=== PATIENT | female | born 1955 | race Caucasian/White ===

== ENCOUNTER 2017-06-01 15:34 | Inpatient (IN) | payer OTHER, MEDICARE ==
[~2017-06-01] VITALS: Ht 157.5 cm; Wt 110.1 kg
[~2017-06-01 15:34] MED LIST: CHLO25TA2 PO; CHOL4POW3 PO; CLIN300C5 PO; DICL1GEL7 TOPICAL; DULE200A INH; FLUT1SPR5 EACH NARE; FLUT1SPR9 EACH NARE; LACO50 PO; LEVO88TA2 PO; LEXA10TA PO; LOSA50TA PO; MELO15TA20 PO; METF500 PO; MONT10TA2 PO; NEUR300C PO; PRAV20TA2 PO; ROBA500T PO; TEGR400T PO; VENTAER INH; VITA250T5 PO; ZANT150T2 PO
[2017-06-01] MEDS ORDERED: LACTULOSE SYRUP 20 GM/30 ML CUP PO PRN (16:15)
[2017-06-01] MEDS ORDERED: CYANOCOBALAMIN 100 MCG TAB PO PRN (16:15)
[2017-06-01] MEDS ORDERED: GLUCAGON 1 MG/ML VIAL OTHER PRN (16:15)
[2017-06-01] MEDS ORDERED: SODIUM CHLORIDE 0.9% FLUSH 10 ML FLUSH IV FLUSH PRN (16:15)
[2017-06-01] MEDS ORDERED: NALOXONE HCL 0.4 MG/ML AMP IV PUSH PRN (16:15)
[2017-06-01] MEDS ORDERED: SENNOSIDES 8.6 MG TAB PO PRN (16:15)
[2017-06-01] MEDS ORDERED: ALBUTEROL SULFATE 90 MCG/ACT HFA 8 GM INHALER INH PRN (16:15)
[2017-06-01] MEDS ORDERED: ACETAMINOPHEN/HYDROcodone 325 MG/5 MG TAB PO PRN (16:15)
[2017-06-01] MEDS ORDERED: ONDANSETRON HCL 4 MG/2 ML VIAL IVP PRN (16:15)
[2017-06-01] MEDS ORDERED: MAGNESIUM HYDROXIDE SUSP 30 ML CUP PO PRN (16:15)
[2017-06-01] MEDS ORDERED: DEXTROSE 50% IN WATER 50 ML VIAL(D50) IV PUSH PRN (16:15)
[2017-06-01] MEDS ORDERED: Vancomycin Consult Pharmacy 1 EA OTHER SCH (16:15)
[2017-06-01] MEDS ORDERED: BISACODYL 10 MG SUPP RECTAL PRN (16:15)
[2017-06-01] MEDS ORDERED: MELOXICAM 15 MG TAB PO PRN (16:15)
[2017-06-01] MEDS ORDERED: VANCOMYCIN INJ 1,000 MG in SODIUM CHLOR 0.9% 250 ML INJ 250 ML IV SCH (16:15)
[2017-06-01] MEDS ORDERED: PILL SPLITTER OTHER PRN (19:30)
[2017-06-01 20:00] VITALS: BP 120/56; PULSE 68; RESP 20; TEMP 97.3; O2SAT 97
[2017-06-01] MEDS: DOCUSATE SODIUM 50 MG/SENNA 8.6 MG TAB PO SCH (21:00)
[2017-06-01] MEDS ORDERED: NON-FORMULARY DRUG (Mometasone-Formoterol 120 Act Inh (Dulera 120 Act Inh) 2 PUFF) INH SCH (21:00)
[2017-06-01] MEDS ORDERED: DICLOFENAC 1% TOPICAL SCH (21:00)
[2017-06-01] MEDS: INSULIN ASPART SUPPLEMENTAL SCALE SQ SCH (21:00)
[2017-06-01] MEDS ORDERED: TEGRETOL 400 MG PO SCH (21:00)
[2017-06-01] MEDS ORDERED: NON-FORMULARY DRUG (Fluticasone Nasal Spray (Flonase Nasal Spray) 50 MCG) EACH NARE SCH (21:00)
[2017-06-01] MEDS ORDERED: LACOSAMIDE 50 MG TAB PO SCH (22:00)
[2017-06-01] MEDS: SODIUM CHLOR 0.9% 1000 ML INJ 1,000 ML IV SCH (22:10)
[2017-06-01] MEDS: SODIUM CHLORIDE 0.9% FLUSH 10 ML FLUSH IV FLUSH SCH (22:11)
[2017-06-01] MEDS: FAMOTIDINE 20 MG TAB PO SCH (22:12)
[2017-06-01] MEDS: MONTELUKAST SODIUM 10 MG TAB PO SCH (22:12)
[2017-06-01] MEDS: ENOXAPARIN SODIUM 40 MG/0.4 ML SYRINGE SQ SCH (22:12)
[2017-06-01] MEDS: GABAPENTIN 300 MG CAP PO SCH (22:13)
[2017-06-01] MEDS ORDERED: VANCOMYCIN INJ 1,700 MG in SODIUM CHLORID 0.9% 500 ML INJ 500 ML IV SCH (23:00)
[2017-06-02] VITALS: BP 139/63; PULSE 71; RESP 20; TEMP 96.5; O2SAT 100
[2017-06-02] MEDS ORDERED: LACOSAMIDE 50 MG TAB PO SCH ×2 (00:15→09:00)
[2017-06-02] MEDS ORDERED: diphenhydrAMINE HCL 50 MG/ML VIAL IV PUSH ONE (00:45)
[2017-06-02] MEDS: LACOSAMIDE 100 MG TAB PO SCH ×3 (00:54→20:10)
[2017-06-02] MEDS: LEVOTHYROXINE SODIUM 88 MCG TAB PO SCH (05:29)
[2017-06-02 06:10] LABS: AUTOMATED NEUTROPHIL # 4.6 TH/MM3 (1.8-7.7); BASOPHIL % 0.5 % (0.0-2.0); EOSINOPHIL # 0.2 TH/MM3 (0-0.4); EOSINOPHIL % 2.4 % (0.0-4.0); HEMATOCRIT 31.9 % (35.0-46.0); HEMOGLOBIN 10.6 GM/DL (11.6-15.3); LYMPH % 25.2 % (9.0-44.0); LYMPHOCYTE # 1.9 TH/MM3 (1.0-4.8); MEAN CELL VOLUME 82.9 FL (80.0-100.0); MEAN CORPUSCULAR HEMOGLOBIN 27.6 PG (27.0-34.0); MEAN CORPUSCULAR HGB CONC 33.3 % (32.0-36.0); MEAN PLATELET VOLUME 6.9 FL (7.0-11.0); MONO % 9.4 % (0.0-8.0); MONOCYTE # 0.7 TH/MM3 (0-0.9); NEUT % 62.5 % (16.0-70.0); PLATELET COUNT 257 TH/MM3 (150-450); RED BLOOD COUNT 3.84 MIL/MM3 (4.00-5.30); RED CELL DISTRIBUTION WIDTH 13.3 % (11.6-17.2); WHITE BLOOD COUNT 7.4 TH/MM3 (4.0-11.0)
[2017-06-02 06:19] LABS: CHLORIDE 98 MEQ/L (98-107); SODIUM (NA) 135 MEQ/L (136-145)
[2017-06-02 06:22] LABS: CALCIUM 8.2 MG/DL (8.5-10.1)
[2017-06-02 06:23] LABS: ALBUMIN 3.1 GM/DL (3.4-5.0); BICARBONATE 29.4 MEQ/L (21.0-32.0); BLOOD UREA NITROGEN 16 MG/DL (7-18); GLUCOSE,RANDOM 111 MG/DL (74-106)
[2017-06-02 06:26] LABS: ALT (GPT) 20 U/L (10-53); AST (GOT) 16 U/L (15-37); CREATININE 0.62 MG/DL (0.50-1.00); GLOMERULAR FILTRATION RATE 98 ML/MIN (>89)
[2017-06-02 06:27] LABS: TOTAL BILIRUBIN ADULT 0.3 MG/DL (0.2-1.0); TOTAL PROTEIN 6.6 GM/DL (6.4-8.2)
[2017-06-02 06:29] LABS: ALKALINE PHOSPHATASE 64 U/L (45-117)
[2017-06-02 08:00] VITALS: BP 134/60; PULSE 73; RESP 18; TEMP 98; O2SAT 100
[2017-06-02] MEDS: INSULIN ASPART SUPPLEMENTAL SCALE SQ SCH ×4 (08:00→20:25)
[2017-06-02] MEDS ORDERED: POTASSIUM CHLORIDE 20 MEQ CONTROLLED RELEASE TAB PO ONE (08:45)
[2017-06-02] MEDS: DOCUSATE SODIUM 50 MG/SENNA 8.6 MG TAB PO SCH ×2 (09:00→20:11)
[2017-06-02] MEDS: ESCITALOPRAM OXALATE 10 MG TAB PO SCH (09:00)
[2017-06-02] MEDS ORDERED: POTASSIUM CHLORIDE 10 MEQ CONTROLLED RELEASE TAB PO ONE (09:15)
--- NOTE | 2017-06-02 10:16 | HHI.DCPOC ---
Discharge Care Plan Goals to Promote Your Health * To prevent worsening of your condition and complications * To maintain your health at the optimal level Directions to Meet Your Goals Take your medications as prescribed Follow your dietary instruction Follow activity as directed Keep your appointments as scheduled Take your immunizations and boosters as scheduled If your symptoms worsen call your PCP, if no PCP go to Urgent Care Center or Emergency Room Smoking is Dangerous to Your Health. Avoid second hand smoke Call the 24-hour hour crisis hotline for domestic abuse at Evi Siddiqui MD Jun 02, 2017 10:16
[2017-06-02] MEDS: CHOLESTYRAMINE 4 GM PACKET PO SCH ×2 (11:00→17:00)
[2017-06-02] MEDS: FLUTICASONE PROPIONATE 50 MCG/ACT 16 GM NASAL SPRAY EACH NARE SCH (11:32)
[2017-06-02] MEDS: PRAVASTATIN SOD 20 MG TAB PO SCH (11:34)
[2017-06-02] MEDS: GABAPENTIN 300 MG CAP PO SCH ×2 (11:34→20:10)
[2017-06-02] MEDS: FAMOTIDINE 20 MG TAB PO SCH ×2 (11:34→20:10)
[2017-06-02] MEDS: CHLORTHALIDONE 50 MG TAB PO SCH (11:35)
[2017-06-02] MEDS: SODIUM CHLORIDE 0.9% FLUSH 10 ML FLUSH IV FLUSH SCH ×2 (11:35→20:11)
[2017-06-02] MEDS: LOSARTAN 50 MG TAB PO SCH (11:38)
[2017-06-02] MEDS: METHOCARBAMOL 500 MG TAB PO SCH ×3 (11:38→18:25)
[2017-06-02] MEDS: SODIUM CHLOR 0.9% 1000 ML INJ 1,000 ML IV SCH ×2 (11:40→14:11)
--- NOTE | 2017-06-02 13:26 | HHI.HP ---
HPI Service [facility] Primary Care Physician Non-Staff Admission Diagnosis Diagnoses: (1) Leg edema, left (2) Pure hypercholesterolemia (3) Asthma (4) Allergic rhinitis (5) Gastroesophageal reflux (6) Migraine (7) Chronic low back pain (8) Obesity (9) Conjunctival xerosis, unspecified, bilateral (10) Anxiety (11) Diabetes mellitus type 2, controlled (12) Hypertension, goal below 140/90 (13) Hyperlipidemia with target LDL less than 100 Travel History International Travel<30 Days: No Contact w/Intl Traveler <30 Da: No Traveled to Known Affected Are: No History of Present Illness Patient is a 62-year-old female who states she "feels sick". Also complains of feeling weak and tired. Patient was seen here last night for treatment of a right facial cellulitis. Patient was given clindamycin IM in emergency department last night and discharged home with by mouth clindamycin. Denies fever. She came back to ER with c/o right eye was swollen and the cellulitis is spreading further up her scalp. She did take one dose of clyndamycin. Patient received Unasyn in the ER in [place]. Patient was transferred to hospital and was started on vancomycin IV for worsening cellulitis. Patient developed red med syndrome with vanco and was stopped, patient doesn't want vanco. Rash erythema and edema imprpved significantly. Will DC vanco and start clindamycin IV. Review of Systems Except as stated in HPI: all other systems reviewed are Neg Past Family Social History Past Medical History Hypertension, hyperlipidemia, hypothyroidism, GERD, seizures Past Surgical History Hysterectomy Reported Medications Reported Meds & Active Scripts Active Clindamycin (Clindamycin HCl) 300 Mg Cap 300 Mg PO Q6H 10 Days Losartan (Losartan Potassium) 50 Mg Tab 50 Mg PO DAILY Meloxicam 15 Mg Tab 15 Mg PO DAILY PRN Zantac (Ranitidine HCl) 150 Mg Tab 150 Mg PO BID Chlorthalidone 25 Mg Tab 25 Mg PO DAILY Vitamin B-12 (Cyanocobalamin) 250 Mcg Tab 250 Mcg PO DAILY PRN Reported Diclofenac Topical 1% Gel 1 Applic TOPICAL BID Flonase Nasal Corder (Fluticasone Nasal Corder) 50 Mcg/Act Corder 50 Mcg EACH NARE BID Pravastatin 20 Mg Tab 20 Mg PO DAILY Vimpat (Lacosamide) 50 Mg Tab 50 Mg PO BID Robaxin (Methocarbamol) 500 Mg Tab 500 Mg PO TID Cholestyramine 4 Gm/Dose Powd 4 Gm PO BID 1 level scoopful of powder contains 4 grams of cholestyramine. Flonase Allergy Relief Children Nasal Corder (Fluticasone Nasal Corder) 50 Mcg/ Act Corder 2 Corder EACH NARE DAILY 50 mcg/spray Tegretol-Xr 12 HR (Carbamazepine) 400 Mg Tab 400 Mg PO Q12HR Singulair (Montelukast Sodium) 10 Mg Tab 10 Mg PO HS Neurontin (Gabapentin) 300 Mg Cap 300 Mg PO BID Lexapro (Escitalopram Oxalate) 10 Mg Tab 10 Mg PO DAILY Levothyroxine (Levothyroxine Sodium) 88 Mcg Tab 88 Mcg PO DAILY Glucophage (Metformin HCl) 500 Mg Tab 500 Mg PO BIDPC With meals Dulera 120 Act Inh (Mometasone-Formoterol 120 Act Inh) 200-5 Mcg/Act Inh 2 Puff INH BID Ventolin Hfa 18 GM Inh (Albuterol Sulfate) 90 Mcg/Act Aer 2 Puff INH Q4-6H PRN Allergies: Coded Allergies: bacitracin (Unverified Allergy, Severe, Rash/Bumps , 06/01/17) doxycycline (Unverified Allergy, Severe, Rash & Throat closes , 06/01/17) gramicidin D (Unverified Allergy, Severe, Rash/Bumps , 06/01/17) lamotrigine (Unverified Allergy, Severe, Rash , 06/01/17) minocycline (Unverified Allergy, Severe, Rash & Throat closes , 06/01/17) neomycin (Unverified Allergy, Severe, Rash/Bumps , 06/01/17) polymyxin B (Unverified Allergy, Severe, Rash/Bumps , 06/01/17) tigecycline (Unverified Allergy, Severe, Rash & Throat closes , 06/01/17) Tetracyclines (Verified Allergy, Unknown, Anaphylaxis, 06/01/17) quaternium 15 (Verified Allergy, Unknown, 06/01/17) thimerosal (Verified Allergy, Unknown, 06/01/17) estradiol (Unverified Adverse Reaction, Severe, headaches, breast pain, ) formaldehyde (Unverified Adverse Reaction, Severe, Rash , 06/01/17) vancomycin (Verified Adverse Reaction, Intermediate, Rash, hives, vaginal pain, vaginal quivering, 06/02/17) acetazolamide (Unverified Adverse Reaction, Unknown, Nausea & Vomiting , 06/01/17) codeine (Unverified Adverse Reaction, Unknown, Nausea & Vomiting , ) pentazocine (Unverified Adverse Reaction, Unknown, Nausea & Vomiting , ) topiramate (Unverified Adverse Reaction, Unknown, Effects memory , ) Family History Both parents and sister with diabetes, hypertension hyperlipidemia Social History Quit smoking 12 years ago no illicit drug use or EtOH use Physical Exam Vital Signs Vital Signs Date Time Temp Pulse Resp B/P (MAP) Pulse Ox O2 Delivery O2 Flow Rate FiO2 06/02/17 08:00 98.0 73 18 134/60 (84) 100 06/02/17 00:00 96.5 71 20 139/63 (88) 100 06/01/17 20:00 97.3 68 20 120/56 (77) 97 Physical Exam GENERAL: This is a well-nourished, well-developed patient, in no apparent distress. SKIN: Right mid frontal at the hair line small induration with some erythema and edema surrounding, painful to palpation. HEAD: Atraumatic. Normocephalic. No temporal or scalp tenderness. EYES: Pupils equal round and reactive. Extraocular motions intact. No scleral icterus. No injection or drainage. ENT: Nose without bleeding, purulent drainage or septal hematoma. Throat without erythema, tonsillar hypertrophy or exudate. Uvula midline. Airway patent. NECK: Trachea midline. No JVD or lymphadenopathy. Supple, nontender, no meningeal signs. CARDIOVASCULAR: Regular rate and rhythm without murmurs, gallops, or rubs. RESPIRATORY: Clear to auscultation. Breath sounds equal bilaterally. No wheezes , rales, or rhonchi. GASTROINTESTINAL: Abdomen soft, non-tender, nondistended. No hepato-splenomegaly , or palpable masses. No guarding. MUSCULOSKELETAL: Extremities without clubbing, cyanosis, or edema. No joint tenderness, effusion, or edema noted. No calf tenderness. Negative Homans sign bilaterally. NEUROLOGICAL: Awake and alert. Cranial nerves II through XII intact. Motor and sensory grossly within normal limits. Five out of 5 muscle strength in all muscle groups. Normal speech. Laboratory Laboratory Tests Test 06/02/17 04:33 White Blood Count 7.4 Red Blood Count 3.84 Hemoglobin 10.6 Hematocrit 31.9 Mean Corpuscular Volume 82.9 Mean Corpuscular Hemoglobin 27.6 Mean Corpuscular Hemoglobin Concent 33.3 Red Cell Distribution Width 13.3 Platelet Count 257 Mean Platelet Volume 6.9 Neutrophils (%) (Auto) 62.5 Lymphocytes (%) (Auto) 25.2 Monocytes (%) (Auto) 9.4 Eosinophils (%) (Auto) 2.4 Basophils (%) (Auto) 0.5 Neutrophils # (Auto) 4.6 Lymphocytes # (Auto) 1.9 Monocytes # (Auto) 0.7 Eosinophils # (Auto) 0.2 Basophils # (Auto) 0.0 CBC Comment DIFF FINAL Differential Comment Blood Urea Nitrogen 16 Creatinine 0.62 Random Glucose 111 Total Protein 6.6 Albumin 3.1 Calcium Level 8.2 Alkaline Phosphatase 64 Aspartate Amino Transf (AST/SGOT) 16 Alanine Aminotransferase (ALT/SGPT) 20 Total Bilirubin 0.3 Sodium Level 135 Potassium Level 3.4 Chloride Level 98 Carbon Dioxide Level 29.4 Anion Gap 8 Estimat Glomerular Filtration Rate 98 Result Diagram: 06/02/17 0433 06/02/17 0433 Caprini VTE Risk Assessment Caprini VTE Risk Assessment: Mod/High Risk (score >= 2) Caprini Risk Assessment Model Point Value = 1 Point Value = 2 Point Value = 3 Point Value = 5 Age 41-60 Minor surgery BMI > 25 kg/m2 Swollen legs Varicose veins or History of unexplained or recurrent spontaneous Oral contraceptives or hormone replacement Sepsis (< 1 month) Serious lung disease, including pneumonia (< 1 month) Abnormal pulmonary function Acute myocardial infarction Congestive heart failure (< 1 month) History of inflammatory bowel disease Medical patient at bed rest Age 61-74 Arthroscopic surgery Major open surgery (> 45 min) Laparoscopic surgery (> 45 min) Malignancy Confined to bed (> 72 hours) Immobilizing plaster cast Central venous access Age >= 75 History of VTE Family history of VTE Factor V Leiden Prothrombin [id number] Lupus anticoagulant Anticardiolipin antibodies Elevated serum homocysteine Heparin-induced thrombocytopenia Other congenital or acquired thrombophilia Stroke (< 1 month) Elective arthroplasty Hip, pelvis, or leg fracture Acute spinal cord injury (< 1 month) Prophylaxis Regimen Total Risk Factor Score Risk Level Prophylaxis Regimen 0-1 Low Early ambulation 2 Moderate Order ONE of the following: *Sequential Compression Device (SCD) *Heparin 5000 units SQ BID 3-4 Higher Order ONE of the following medications: *Heparin 5000 units SQ TID *Enoxaparin/Lovenox 40 mg SQ daily (WT < 150 kg, CrCl > 30 mL/min) *Enoxaparin/Lovenox 30 mg SQ daily (WT < 150 kg, CrCl > 10-29 mL/min) *Enoxaparin/Lovenox 30 mg SQ BID (WT < 150 kg, CrCl > 30 mL/min) AND/OR *Sequential Compression Device (SCD) 5 or more Highest Order ONE of the following medications: *Heparin 5000 units SQ TID (Preferred with Epidurals) *Enoxaparin/Lovenox 40 mg SQ daily (WT < 150 kg, CrCl > 30 mL/min) *Enoxaparin/Lovenox 30 mg SQ daily (WT < 150 kg, CrCl > 10-29 mL/min) *Enoxaparin/Lovenox 30 mg SQ BID (WT < 150 kg, CrCl > 30 mL/min) AND *Sequential Compression Device (SCD) Assessment and Plan Assessment and Plan Right forehead cellulitis received vanco and had red men syndr reaction . will give clindamycin IV. Stop vancomycin Obtain cultures if possible Chronic medical problems appears stable. restart home meds as appropriate, hold metformin, start ISS/ accuchecks Discussed Condition With pt, nurse, family ED physician Physician Certification 2 Midnight Certification Type: Admission for Inpatient Services Order for Inpatient Services The services are ordered in accordance with Medicare regulations or non- Medicare payer requirements, as applicable. In the case of services not specified as inpatient-only, they are appropriately provided as inpatient services in accordance with the 2-midnight benchmark. Estimated LOS (days): 3 days is the estimated time the patient will need to remain in the hospital, assuming treatment plan goals are met and no additional complications. Post-Hospital Plan: Home Evi Siddiqui MD Jun 02, 2017 13:26
[2017-06-02] MEDS ORDERED: LACTCHW3 CHEW (14:04)
[2017-06-02] MEDS: CLINDAMYCIN 900 MG/DEX PREMIX 50 ML IV SCH ×2 (14:11→20:11)
[2017-06-02 16:00] VITALS: BP 109/56; PULSE 72; RESP 18; TEMP 98; O2SAT 100
[2017-06-02 20:00] VITALS: BP 119/57; PULSE 76; RESP 18; TEMP 97.2; O2SAT 99
[2017-06-02] MEDS: MONTELUKAST SODIUM 10 MG TAB PO SCH (20:10)
[2017-06-02] MEDS: ENOXAPARIN SODIUM 40 MG/0.4 ML SYRINGE SQ SCH (20:11)
[2017-06-03] VITALS: BP 128/65; PULSE 68; RESP 16; TEMP 98; O2SAT 97
[2017-06-03] MEDS: SODIUM CHLOR 0.9% 1000 ML INJ 1,000 ML IV SCH ×2 (01:07→11:43)
[2017-06-03] MEDS: CLINDAMYCIN 900 MG/DEX PREMIX 50 ML IV SCH (04:32)
[2017-06-03] MEDS: LEVOTHYROXINE SODIUM 88 MCG TAB PO SCH (05:22)
[2017-06-03] MEDS ORDERED: ACETAMINOPHEN 500 MG CPLT PO ONE (05:45)
[2017-06-03 07:50] VITALS: BP 144/70; PULSE 55; RESP 20; TEMP 96.6; O2SAT 94
[2017-06-03 07:51] VITALS: BP 120/58; PULSE 69; RESP 20; TEMP 96.9; O2SAT 97
[2017-06-03] MEDS: INSULIN ASPART SUPPLEMENTAL SCALE SQ SCH ×2 (08:00→11:47)
--- NOTE | 2017-06-03 08:33 | HHI.PR ---
Subjective Remarks Feels better rash , erythema and edema improved significantly. No fever or chills. No n/v/d/c. No allergic reaction. Objective Vitals Vital Signs Date Time Temp Pulse Resp B/P (MAP) Pulse Ox O2 Delivery O2 Flow Rate FiO2 06/03/17 00:00 98.0 68 16 128/65 (86) 97 06/02/17 20:00 97.2 76 18 119/57 (77) 99 06/02/17 16:00 98.0 72 18 109/56 (73) 100 06/02/17 14:11 18 I/O 06/02/17 06/02/17 06/02/17 06/03/17 06/03/17 06/03/17 07:00 15:00 23:00 07:00 15:00 23:00 Intake Total 1198 ml 50 ml 1050 ml 1400 ml Balance 1198 ml 50 ml 1050 ml 1400 ml Intake Oral 480 ml 1000 ml 600 ml IV Total 718 ml 50 ml 50 ml 800 ml # Voids 5 6 4 # Bowel Movements 2 Result Diagram: 06/02/1743206/02/17 0433 Objective Remarks GENERAL: This is a well-nourished, well-developed patient, in no apparent distress. SKIN: Right mid frontal at the hair line small induration with some erythema and edema surrounding, painful to palpation. HEAD: Atraumatic. Normocephalic. No temporal or scalp tenderness. EYES: Pupils equal round and reactive. Extraocular motions intact. No scleral icterus. No injection or drainage. ENT: Nose without bleeding, purulent drainage or septal hematoma. Throat without erythema, tonsillar hypertrophy or exudate. Uvula midline. Airway patent. NECK: Trachea midline. No JVD or lymphadenopathy. Supple, nontender, no meningeal signs. CARDIOVASCULAR: Regular rate and rhythm without murmurs, gallops, or rubs. RESPIRATORY: Clear to auscultation. Breath sounds equal bilaterally. No wheezes , rales, or rhonchi. GASTROINTESTINAL: Abdomen soft, non-tender, nondistended. No hepato-splenomegaly , or palpable masses. No guarding. MUSCULOSKELETAL: Extremities without clubbing, cyanosis, or edema. No joint tenderness, effusion, or edema noted. No calf tenderness. Negative Homans sign bilaterally. NEUROLOGICAL: Awake and alert. Cranial nerves II through XII intact. Motor and sensory grossly within normal limits. Five out of 5 muscle strength in all muscle groups. Normal speech. A/P Problem List: (1) Leg edema, left ICD Code: R60.0 - Localized edema Status: Acute (2) Pure hypercholesterolemia ICD Code: E78.0 - Pure hypercholesterolemia Status: Acute (3) Asthma ICD Code: J45.909 - Unspecified asthma, uncomplicated Status: Acute (4) Allergic rhinitis ICD Code: J30.9 - Allergic rhinitis, unspecified Status: Acute (5) Gastroesophageal reflux ICD Code: K21.9 - Gastro-esophageal reflux disease without esophagitis Status: Acute (6) Migraine ICD Code: G43.909 - Migraine, unspecified, not intractable, without status migrainosus Status: Acute (7) Chronic low back pain ICD Code: M54.5 - Low back pain; G89.29 - Other chronic pain Status: Acute (8) Obesity ICD Code: E66.9 - Obesity, unspecified Status: Acute (9) Conjunctival xerosis, unspecified, bilateral ICD Code: H11.143 - Conjunctival xerosis, unspecified, bilateral Status: Acute (10) Anxiety ICD Code: F41.9 - Anxiety disorder, unspecified Status: Acute (11) Diabetes mellitus type 2, controlled ICD Code: E11.9 - Type 2 diabetes mellitus without complications Status: Acute (12) Hypertension, goal below 140/90 ICD Code: I10 - Essential (primary) hypertension Status: Acute (13) Hyperlipidemia with target LDL less than 100 ICD Code: E78.5 - Hyperlipidemia, unspecified Status: Acute Assessment and Plan Right forehead cellulitis received vanco and had red men syndr reaction . will give clindamycin IV. Stop vancomycin Obtain cultures if possible Improved significantly to continue clynda as OP by mouth , to f/u as OP with PCP and consultants Chronic medical problems appears stable. restart home meds as appropriate, hold metformin, start ISS/ accuchecks Discussed Condition With pt, nurse Discharge Planning Patient improved, DC home in stable condition to follow up as OP with PCP and consultants. Diet healthy heart and diabetic diet Activity ad chelsea as tolerated Meds per med reconciliations Evi Siddiqui MD Jun 03, 2017 08:33
[2017-06-03] MEDS: PRAVASTATIN SOD 20 MG TAB PO SCH (09:00)
[2017-06-03] MEDS: ESCITALOPRAM OXALATE 10 MG TAB PO SCH (09:00)
[2017-06-03] MEDS: FLUTICASONE PROPIONATE 50 MCG/ACT 16 GM NASAL SPRAY EACH NARE SCH (09:00)
[2017-06-03] MEDS: DOCUSATE SODIUM 50 MG/SENNA 8.6 MG TAB PO SCH (09:00)
[2017-06-03] MEDS: CHOLESTYRAMINE 4 GM PACKET PO SCH (11:00)
[2017-06-03] MEDS: METHOCARBAMOL 500 MG TAB PO SCH (11:44)
[2017-06-03] MEDS: SODIUM CHLORIDE 0.9% FLUSH 10 ML FLUSH IV FLUSH SCH (11:44)
[2017-06-03] MEDS: LACOSAMIDE 100 MG TAB PO SCH (11:44)
[2017-06-03] MEDS: GABAPENTIN 300 MG CAP PO SCH (11:44)
[2017-06-03] MEDS: LOSARTAN 50 MG TAB PO SCH (11:44)
[2017-06-03] MEDS: FAMOTIDINE 20 MG TAB PO SCH (11:44)
[2017-06-03] MEDS: CHLORTHALIDONE 50 MG TAB PO SCH (11:44)
[2017-06-04] MEDS ORDERED: VANCOMYCIN TROUGH ONE (04:45)
== END 2017-06-03 12:19 | disposition home or self-care (01) | DRG 603 ==
LOC: PHEDDLT 18:49 → OBSVTOIN 18:59 → PH3A 18:59
PROVIDERS: ADMIT Hospitalist; ATTEND Hospitalist
DX: L03.211 Cellulitis of face (principal); R56.9 Unspecified convulsions; Z68.41 Body mass index [BMI] 40.0-44.9, adult; I10 Essential (primary) hypertension; E11.9 Type 2 diabetes mellitus without complications; E03.9 Hypothyroidism, unspecified; E78.5 Hyperlipidemia, unspecified; G89.29 Other chronic pain; J45.909 Unspecified asthma, uncomplicated; L27.0 Generalized skin eruption due to drugs and medicaments taken internally; T36.8X5A Adverse effect of other systemic antibiotics, initial encounter; E78.00 Pure hypercholesterolemia, unspecified; K21.9 Gastro-esophageal reflux disease without esophagitis; M54.5 Low back pain; F41.9 Anxiety disorder, unspecified; E66.9 Obesity, unspecified; G43.909 Migraine, unspecified, not intractable, without status migrainosus; L85.3 Xerosis cutis; R60.0 Localized edema; Z90.710 Acquired absence of both cervix and uterus; Z87.891 Personal history of nicotine dependence; Z79.84 Long term (current) use of oral hypoglycemic drugs
CPT/HCPCS: 80053; 82948; 85025; 96365; J0295; J1200; J1650; J3370; J7030; J7040